=== PATIENT | female | born 1995 | race Caucasian/White ===

== ENCOUNTER 2017-01-23 17:19 | Emergency (ER) | payer OTHER ==
[~2017-01-23] VITALS: Ht 162.6 cm; Wt 102.5 kg
[2017-01-23 17:21] VITALS: Ht 162.6 cm; Wt 102.5 kg
[2017-01-23 18:59] LABS: URINE BLOOD (Dip) POC 1+ (NEGATIVE)
[2017-01-23] MEDS ORDERED: CEPH-443 PO (19:41)
[2017-01-23] MEDS ORDERED: PHEN-537 PO (19:41)
--- NOTE | 2017-01-23 19:45 | ERD ---
ER Documentation Chief Complaint Date/Time DATE: 01/23/17 TIME: 19:43 Chief Complaint DYSURIA BURNING X 2 WEEKS HPI 21 yo female comes in with painful urination that is burning for the past 2 weeks when she urinates. This is her first evaluation for this. 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 She has not had any fevers, chills, nausea, vomiting or flank pain. She denies hematuria. ROS All systems reviewed and are negative except as per history of present illness. Medications Home Meds Active Scripts Phenazopyridine Hcl* (Pyridium*) 100 Mg Tab, 100 MG PO TID Y for URINARY PAIN, # 8 TAB Prov:MICHELLE LAW PA-C 01/23/17 Cephalexin* (Keflex*) 500 Mg Capsule, 500 MG PO TID for 7 Days, CAP Prov:MICHELLE LAW PA-C 01/23/17 PMhx/Soc Medical and Surgical Hx: pt denies Surgical Hx Hx Miscellaneous Medical Probl: Yes (PCOS, DM II, UTIs) Hx Alcohol Use: No Hx Substance Use: No Hx Tobacco Use: No Smoking Status: Never smoker Physical Exam Vitals Vital Signs Date Time Temp Pulse Resp B/P Pulse Ox O2 Delivery O2 Flow Rate FiO2 01/23/17 17:21 98.1 70 19 142/78 97 Physical Exam General: Well-developed, well-nourished. The patient appears in no acute distress. HEENT: Head is normocephalic, atraumatic. No scleral icterus. Neck: Supple. Nontender. Lungs: Clear to auscultation. Normal air movement. Heart: Regular rate and rhythm. S1 and S2 are normal. No murmurs, gallops, or rubs. Abdomen: Soft, nontender, nondistended. Bowel sounds are normoactive. No CVA tenderness Extremities: No clubbing or cyanosis. Normal pulses. Moving extremities x 4. No weakness. Neurologic: Alert and oriented 3. No focal deficits. Skin: Normal turgor. No rash or lesions. Results 24 hrs Laboratory Tests Test 01/23/17 19:02 Bedside Urine pH (LAB) 5.0 Bedside Urine Protein (LAB) Negative Bedside Urine Glucose (UA) 0.50% Bedside Urine Ketones (LAB) Trace Bedside Urine Blood 1+ Bedside Urine Nitrite (LAB) Negative Bedside Urine Leukocyte Esterase (L 1+ Procedures/MDM 21-year-old female comes in with acute cystitis. She does not have any febrile illness, flank pain, abdominal pain. Patient presents with 1+ leukocyte esterase in her urine, and will be treated with Keflex. Departure Diagnosis: Primary Impression: UTI (urinary tract infection) Condition: Good Patient Instructions: Understanding Urinary Tract Infections (UTIs) Additional Instructions: Call your primary care doctor TOMORROW for an appointment during the next 1-2 days.See the doctor sooner or return here if your condition worsens before your appointment time. MICHELLE LAW PA-C January 23, 2017 19:45
== END 2017-01-23 20:35 | disposition home or self-care (01) ==
LOC: FTE 17:19
DX: N39.0 Urinary tract infection, site not specified (principal); E11.9 Type 2 diabetes mellitus without complications
CPT/HCPCS: 81003; Z7502; 99283

== ENCOUNTER 2017-01-26 19:10 | Emergency (ER) | payer OTHER ==
[~2017-01-26] VITALS: Ht 162.6 cm; Wt 101.0 kg
[~2017-01-26 19:10] MED LIST: CEPH-443 PO; PHEN-537 PO
[2017-01-26 19:13] VITALS: Ht 162.6 cm; Wt 101.0 kg
[2017-01-26] MEDS ORDERED: CIPR500T4 PO (20:29)
--- NOTE | 2017-01-26 20:33 | ERA ---
ER Documentation Chief Complaint Date/Time DATE: 01/26/17 TIME: 20:33 Chief Complaint Worsening UTI, Came in 2 days ago HPI This is a 21-year-old otherwise healthy female who presents with chief complaint of dysuria. Patient was diagnosed with a lower urinary tract infection and prescribed Keflex 1 week ago. Patient has only taken 3 days of antibiotic and still complains of pain. Patient has taken all the Pyridium. Patient denies back pain, vaginal discharge, or fevers. ROS All systems reviewed and are negative except as per history of present illness. Medications Home Meds Active Scripts Ciprofloxacin Hcl* (Ciprofloxacin Hcl*) 500 Mg Tablet, 500 MG PO BID for 7 Days , TAB Prov:MJ MONTIEL PA-C 01/26/17 Phenazopyridine Hcl* (Pyridium*) 100 Mg Tab, 100 MG PO TID Y for URINARY PAIN, # 8 TAB Prov:MICHELLE LAW PA-C 01/23/17 Cephalexin* (Keflex*) 500 Mg Capsule, 500 MG PO TID for 7 Days, CAP Prov:MICHELLE LAW PA-C 01/23/17 Allergies Allergies: Coded Allergies: No Known Allergy (Unverified , 01/26/17) PMhx/Soc History of Surgery: No Anesthesia Reaction: No Hx Neurological Disorder: No Hx Respiratory Disorders: No Hx Cardiac Disorders: No Hx Psychiatric Problems: No Hx Miscellaneous Medical Probl: Yes (PCOS, DM II, UTIs) Hx Alcohol Use: No Hx Substance Use: No Hx Tobacco Use: No Smoking Status: Never smoker Physical Exam Vitals Vital Signs Date Time Temp Pulse Resp B/P Pulse Ox O2 Delivery O2 Flow Rate FiO2 01/26/17 19:13 98.7 99 20 133/80 97 Physical Exam Const: Obese 21-year-old female Head: Atraumatic Eyes: Normal Conjunctiva ENT: Normal External Ears, Nose and Mouth. Neck: Full range of motion..~ No meningismus. Resp: Clear to auscultation bilaterally Cardio: Regular rate and rhythm, no murmurs Abd: Soft, non tender, non distended. Normal bowel sounds Skin: No petechiae or rashes Back: No midline or flank tenderness Ext: No cyanosis, or edema Neur: Awake and alert Psych: Normal Mood and Affect Results 24 hrs Laboratory Tests Test 01/26/17 20:20 Urine Color ALEXIS Urine Clarity CLEAR Urine pH 5.0 Urine Specific [place] >=1.030 Urine Ketones TRACE Urine Nitrite POSITIVE Urine Bilirubin NEGATIVE Urine Urobilinogen >8.0 E.U./dL Urine Leukocyte Esterase 2+ Urine Microscopic RBC 25-50/HPF Urine Microscopic WBC 25-50/HPF Urine Epithelial Cells MANY Urine Bacteria MODERATE Urine Hemoglobin 2+ Urine Glucose 0.5%% Urine Total Protein 4+ Current Medications Medications (Trade) Dose Ordered Sig/S[place]ma Route PRN Reason Start Time Stop Time Status Last Admin Dose Admin Ceftriaxone Sodium (Rocephin) 1 gm ONCE ONCE IM 01/26/17 21:30 01/26/17 21:31 DC Procedures/MDM Patient being worked up for chief complaint of dysuria. Patient had a urinalysis which was consistent with a diagnosis of urinary tract infection. Patient had 4+ protein in the urine. At this time the most likely diagnosis is pyelonephritis. The patient is stable enough for outpatient treatment. Patient will be given ciprofloxacin and given Rocephin in the ER. Patient will be discharged with instructions and return precautions. I have sat down with the patient and have talked with her at length about the importance of finishing the antibiotics. Patient has verbally agreed that she understands the importance of taking the antibiotics and the full treatment plan. Patient will be discharged with instructions to continue the antibiotics. Departure Diagnosis: Primary Impression: Urinary tract infection Qualified Code: N39.0 - Urinary tract infection without hematuria, site unspecified Condition: Stable Patient Instructions: Urinary Tract Infections in Women Additional Instructions: Follow up with your PCP within the next 1-3 days for a more thorough evaluation and a possible referral to a specialist. Return the the emergency department immediately if symptoms worsen or change. If you have any questions regarding medications, ask your pharmacist or us before you leave. If any adverse reactions occur while taking your medications, discontinue the treatment and return to the emergency department immediately. Take your medications as directed, and complete the entire course of treatment. MJ MONTIEL PA-C January 26, 2017 20:33
[2017-01-26 21:04] LABS: ADD UMIC YES; URINE BILIRUBIN (Dip) NEGATIVE (NEGATIVE); URINE BLOOD (Dip) 2+ (NEGATIVE); URINE COLOR AMBER (YELLOW); URINE KETONES (Dip) TRACE (NEGATIVE); URINE LEUKOCYTE ESTERASE (Dip) 2+ (NEGATIVE); URINE NITRITE (Dip) POSITIVE (NEGATIVE); URINE TOTAL PROTEIN (Dip) 4+ (NEGATIVE); URINE UROBILINOGEN (Dip) >8.0 E.U./dL (0.1-1.0)
[2017-01-26 21:13] LABS: BACTERIA,URINE MODERATE; URINE RBCS 25-50 /HPF (0)
[2017-01-26] MEDS ORDERED: CEFTRIAXONE 1 GM INJ IM ONE (21:30)
[2017-01-26 21:56] VITALS: PULSE 82; RESP 20; TEMP 98.8
== END 2017-01-26 21:50 | disposition home or self-care (01) ==
LOC: FTE 19:10
DX: N39.0 Urinary tract infection, site not specified (principal); E11.9 Type 2 diabetes mellitus without complications
CPT/HCPCS: 81001; 96372; J0696; Z7502; 81003